=== PATIENT | female | born 1995 | race Caucasian/White ===

== ENCOUNTER 2017-12-14 18:28 | Emergency (ER) | payer MEDICAID ==
[~2017-12-14] VITALS: Ht 175.3 cm; Wt 95.4 kg
[~2017-12-14 18:28] MED LIST: ACET325T26 PO; PREN1TAB60 PO
[2017-12-14 18:32] VITALS: BP 120/73
== END 2017-12-14 19:23 | disposition home or self-care (01) ==
LOC: ED 19:17
DX: B35.9 Dermatophytosis, unspecified (principal)
CPT/HCPCS: 99282

== ENCOUNTER 2018-03-22 16:09 | Emergency (ER) | payer MEDICAID ==
[~2018-03-22] VITALS: Ht 175.3 cm; Wt 97.0 kg
[2018-03-22 16:16] VITALS: BP 116/81
== END 2018-03-22 18:02 | disposition home or self-care (01) ==
LOC: ED 17:05
DX: S70.362A Insect bite (nonvenomous), left thigh, initial encounter (principal); T78.40XA Allergy, unspecified, initial encounter; F17.200 Nicotine dependence, unspecified, uncomplicated; W57.XXXA Bitten or stung by nonvenomous insect and other nonvenomous arthropods, initial encounter; Y93.89 Activity, other specified; Y99.8 Other external cause status; Y92.89 Other specified places as the place of occurrence of the external cause
CPT/HCPCS: 99283

== ENCOUNTER 2018-10-28 08:10 | Emergency (ER) | payer MEDICAID ==
[~2018-10-28] VITALS: Ht 175.3 cm; Wt 98.0 kg
[2018-10-28 08:13] VITALS: BP 123/75
[2018-10-28] MEDS ORDERED: DEXAMETHASONE 4 MG/ML, 5ML ONE (08:38)
[2018-10-28] MEDS ORDERED: DEXAMETHASONE 4 MG/ML, 1ML PO ONE (09:00)
--- NOTE | 2018-10-28 09:12 | NUR ---
Patient given discharge instructions and Rx, they have confirmed that they understand the instructions. Patient ambulatory with steady gait.
== END 2018-10-28 09:13 | disposition home or self-care (01) ==
LOC: ED 09:10
DX: J02.0 Streptococcal pharyngitis (principal); B95.5 Unspecified streptococcus as the cause of diseases classified elsewhere
CPT/HCPCS: 99283; J1100

== ENCOUNTER 2019-04-05 16:33 | Emergency (ER) | payer MEDICAID ==
[~2019-04-05] VITALS: Ht 175.3 cm; Wt 100.2 kg
[2019-04-05 16:39] VITALS: BP 106/54
== END 2019-04-05 17:50 | disposition home or self-care (01) ==
LOC: ED 17:20
DX: S91.332A Puncture wound without foreign body, left foot, initial encounter (principal); F17.200 Nicotine dependence, unspecified, uncomplicated; Z88.1 Allergy status to other antibiotic agents; W45.0XXA Nail entering through skin, initial encounter; Y93.89 Activity, other specified; Y92.098 Other place in other non-institutional residence as the place of occurrence of the external cause; Y99.8 Other external cause status
CPT/HCPCS: 90471; 90715; 99283